=== PATIENT | male | born 1970 | race Caucasian/White ===

== ENCOUNTER → 2018-01-07 10:56 | Outpatient (CLI) | payer BC, SELFPAY ==
--- NOTE | 2018-01-07 11:00 | DI.RAD.S_ITS ---
PROCEDURE: XR LUMBAR SPINE MIN 4V INDICATIONS: low back pain with left sciatica TECHNIQUE: 5 views of the lumbar spine acquired. COMPARISON: None. FINDINGS: Bones: 5 nonrib-bearing vertebrae are present. There is S-shaped scoliosis concave to the left in the lumbar region. Disc narrowing is evident at L3-4, L4-5 and L5-S1. Slight retrolisthesis L1-2, L2-3, L3-4 and L4-5. Grade 1 anterolisthesis L5 on S1, likely bilateral L5 pars defects. Alignment appears maintained on flexion and extension views. No vertebral body compression fractures. No suspicious bony lesions. Soft tissues: Overlying bowel gas pattern is normal. Mild aortic calcifications. Flexion/extension: There is normal range of motion, with preserved normal alignment. IMPRESSION: 1. Apparent L5 spondylolyses with grade 1 spondylolisthesis L5-S1. 2. Mild retrolisthesis at all other lumbar levels, maintained throughout range of motion. 3. Degenerative disc disease L3-4, L4-5 and L5-S1. 4. Mild thoracolumbar scoliosis. Dictated by: Mario Patricio M.D. on 01/07/2018 at 11:56 Approved by: Mario Patricio M.D. on 01/07/2018 at 12:01
== END ==
PROVIDERS: Visit Provider Family Medicine
DX: M43.17 Spondylolisthesis, lumbosacral region (principal); M51.36 Other intervertebral disc degeneration, lumbar region; M51.37 Other intervertebral disc degeneration, lumbosacral region; M41.25 Other idiopathic scoliosis, thoracolumbar region
CPT/HCPCS: 72110

== ENCOUNTER → 2018-01-17 17:42 | Outpatient (CLI) | payer BC, SELFPAY ==
--- NOTE | 2018-01-17 17:48 | DI.MRI.S_ITS ---
PROCEDURE: MR LUMBAR SPINE WO CON INDICATIONS: low back pain with left sciatica TECHNIQUE: Noncontrast sagittal T1 spin echo and T2 fast echo, sagittal STIR, axial T1 and T2 fast spin echo through the lumbar spine. In cases with scoliosis, additional coronal T2 fast spin echo may be performed. COMPARISON: [facility], CR, XR LUMBAR SPINE MIN 4V, 01/07/2018, 10:43. FINDINGS: Image quality: Excellent. Alignment and Curvature: There is grade 2 anterolisthesis of L5 over S1 secondary to pars defect. Bone Marrow: Degenerative endplate signal changes at L4, L5 and S1. No acute vertebral body compression fractures. Spinal Cord: Conus medullaris terminates at the T12 level. Visualized cord demonstrates normal signal and size. Paraspinous Soft Tissues: No paravertebral masses. L1-L2: Normal appearance. L2-L3: Normal appearance. L3-L4: Moderate loss disc height and disc desiccation. There is broad posterior disc bulge and posterior disc protrusion. There is a posterior central annular tear.. Mild bilateral facet arthropathy. The central canal is mildly narrowed. Mild foraminal stenosis. L4-L5: Dthqkgij-bu-cpxmhx loss disc height and disc desiccation. There is broad posterior disc bulge and disc osteophyte complex. Mild bilateral facet arthropathy. The central canal is patent. Moderate bilateral foraminal stenosis. L5-S1: Weatnrhz-ml-dreqdy loss disc height and disc desiccation. There is broad posterior disc bulge. Mild bilateral facet arthropathy. The central canal is mildly narrowed. Severe bilateral foraminal stenosis. IMPRESSION: 1. Grade 2 anterolisthesis of L5 on S1 secondary to pars defects. 2. Multilevel degenerative disc disease and facet arthropathy as described. 2. Mild central canal stenosis at L3-L4 and L5-S1. 3. Multilevel foraminal stenoses, severe at L5-S1 bilaterally, moderate at L4-L5 bilaterally. Dictated by: Carlie Veloz M.D. on 01/18/2018 at 8:07 Transcribed by: YADI on 01/18/2018 at 8:13 Approved by: Carlie Veloz M.D. on 01/18/2018 at 9:46
== END ==
PROVIDERS: Visit Provider Family Medicine
DX: M43.17 Spondylolisthesis, lumbosacral region (principal); M51.36 Other intervertebral disc degeneration, lumbar region; M47.816 Spondylosis without myelopathy or radiculopathy, lumbar region; M48.061 Spinal stenosis, lumbar region without neurogenic claudication; M48.07 Spinal stenosis, lumbosacral region; M99.73 Connective tissue and disc stenosis of intervertebral foramina of lumbar region
CPT/HCPCS: 72148

== ENCOUNTER → 2018-03-12 08:50 | Outpatient (CLI) | payer BC, SELFPAY ==
[2018-03-12 09:54] LABS: Add Manual Diff / Slide Review NO; Basophils Percent Auto 0.7 % (0-2); Eosinophils Percent Auto 7.4 % (2-4); Hematocrit 42.5 % (41-53); Hemoglobin 14.4 g/dL (13.5-17.5); Lymphocytes Percent Auto 42.7 % (25-40); Mean Corpuscular HGB Conc 33.9 % (30-36); Mean Corpuscular Hemoglobin 29.4 PG (26-34); Mean Corpuscular Volume 86.7 fL (80-100); Monocytes Percent Auto 9.5 % (3-14); Neutrophils Absolute Auto 3700 /uL (3000-5900); Neutrophils Percent Auto 39.7 % (50-75); Platelet Count 312 X10^3/uL (150-400); Red Cell Distribution Width 13.8 % (11.6-14.8); White Blood Cell Count 9.2 X10^3/uL (4.5-11.0)
[2018-03-12 09:57] LABS: Blood Urea Nitrogen 16 mg/dL (9-20); Calcium 8.8 mg/dL (8.4-10.2); Carbon Dioxide 26 mmol/L (22-32); Chloride 103 mmol/L (98-107); Estimated Glomerular Filt Rate > 60.0 mL/min (>60); Glucose 75 mg/dL (70-100); HEMOLYSIS 28 (0-50); Potassium 3.6 mmol/L (3.4-5.1); Sodium 141 mmol/L (137-145)
== END ==
PROVIDERS: PCP Family Medicine; Visit Provider Orthopaedic Surgery Orthopaedic Surgery of the Spine
DX: M48.061 Spinal stenosis, lumbar region without neurogenic claudication (principal)
CPT/HCPCS: 36415; 80048; 85025; 93005

== ENCOUNTER 2018-03-15 06:44 | Inpatient (IN) | payer BC, SELFPAY ==
[2018-03-11 16:20] VITALS: BMI 25.7
[2018-03-15] VITALS (16 sets, daily range): BP systolic 105–152; BP diastolic 65–97; PULSE 73–98; RESP 10–18; TEMP 36.4–36.9; O2SAT 95–100; BMI 25.0
[2018-03-15] MEDS: LACTATED RINGERS 1,000 ML 42 ML IV ×2 (07:15→08:50)
[2018-03-15] MEDS: CEFAZOLIN 2 GM/100 ML FROZ.PIGGY IV ×3 (08:03→23:38)
--- NOTE | 2018-03-15 09:26 | SUR.OPER ---
Prone on spine table, head in foam head support, padded chest and pelvic supports, gel pad at knees, lower legs supported by pillows; nipples, genitalia and toes free of pressure, arms secured on foam padded arm boards at <90 degrees abduction. Tape over blanket at thigh secured to table.
--- NOTE | 2018-03-15 09:26 | SUR.OPER ---
to or from opd via gurney induction in supine position on gurney then to prone on spine table for procedure
[2018-03-15] MEDS: BUPIVACAINE 0.25% W/ EPI VIAL 50 ML INJ (09:41)
[2018-03-15] MEDS: BUPIVACAINE LIPOSOME 266 MG/20 ML VIAL INJ (09:42)
--- NOTE | 2018-03-15 10:37 | SUR.OPER ---
Prone on padded OR bed, head in foam head support, gel chest rolls, gel pad under knees, pillow under lower legs, toes free of pressure, arms secured on padded arm boards at <90 degrees abduction. Safety belt at thigh. to or from opd via gurney induced in supine position on gurney then to prone om spine table
--- NOTE | 2018-03-15 11:37 | PM.OP.1 ---
Operative Date/Time/Diagnoses Date of procedure: 03/15/18 Time of procedure: 08:38 Pre-op diagnosis: 1. L5-S1 spondylolisthesis 2. L4-5, L5-S1 spondylosis with radiculopathy 3. L4-5, L5-S1 spinal stenosis Post-op diagnosis: same Procedure & Clinicians Procedure: 1. L4-5, L5-S1 Postero-lateral and posterior interbody fusion 2. L4-5, L5-S1 interbody cage placement. 3. L4-5, L5-S1 decompressive laminectomy with bilateral facetecomies 4. L4-5, L5-S1 Posterior segmental instrumentation 5. [place] of bone marrow from iliac crest 6. Utilization of microsurgical technique and operating microscope Same procedure as scheduled: Yes Indications: Patient has been having chronic back pain and worsening lumbar radiculopathy. Patient failed multiple conservative management with worsening pain weakness and numbness in her lower extremity. Patient has been having difficulty performing activity of daily living. After discussing risks benefits of treatment options, patient elected proceed with surgery. Surgeon: Dar Mena Fisher Trammel Net: Yaima Nicolas Click Yes if Unassisted: No Anesthesia Type: General Operative Notes Closure Type: primary Specimen(s): none sent Implants & Drains: Globus Revolve screws Rise Cages Applied: catheter Estimated Blood Loss (mL): 200 Blood products transfused: none Procedure in detail: Patient was seen in the preoperative area. Risks and benefits of the surgery was discussed with the patient. Informed consent was obtained from the patient and placed in the chart. Surgical site was marked. Patient was taken to the operative room. General anesthesia was administered. Prophylactic antibiotic was given to the patient less than 30 min before the incision was made. Patient was placed into a prone position on the Phong table. Patient's back was then prepped and draped in the sterile fashion. Time-out was performed at this time. Using AP and lateral C-arm imaging the interval between L4-S1 was identified and marked on patient's back. A 2 inch incision 2 in from midline was made on the left side first. The fascia was incised in line with skin incision. Globus MARS retractors was placed inside the incision and docked onto the L4 and L5 lamina. Using microsurgical technique and operating microscope, a L4 and L5 laminectomy and L4-5 L5-S1 facetectomy was performed using a Kerrison rongeur. The disc space at L4-5, L5-S1 was identified. And a total diskectomy was performed at L4-5, L5-S1 level. The endplates were decorticated using a rasp and shaver. The total diskectomy and decortication was performed at L4-5, L5-S1 level in order to to accomplish a L4-5, L5-S1 fusion. The local bone from the laminectomy and facetectomy was saved for local bone grafting. After the total diskectomy and decortication was completed, Globus viacell bone graft material was combined with local bone that was harvested earlier. At this time, a separate skin is incision was made over the iliac crest. A Jamshidi needle was inserted into the iliac crest through a separate skin incision. 5 cc of bone marrow aspiration was obtained through the separate skin incision using a Jamshidi needle from the iliac crest. The bone marrow aspiration was combined with local bone and the via cell bone grafting material. The bone grafting material was placed into the L4-5, L5-S1 interbody space along with two cages, one expandable cage at each level. The cages were expanded to their maximum height using the torque limiting screwdriver. At this time a mirror image incision was made on the right side. The fascia was incised in line with the skin incision. Globus MARS retractor was inserted and docked onto the L4-5, L5-S1 posterolateral gutter. Using the power drill, posterior-lateral decortication was performed at L4-5, L5-S1 level until bleeding cortical bone was identified. The remaining bone grafting material was placed into the L4-5 L5-S1 posterior lateral gutter he order to accomplish posterolateral fusion at the L4-5 L5-S1 levels. Using the double C-arm technique, pedicle screws were placed into the L4, L5, S1 pedicles bilaterally. This was done by placing the Jamshidi needle into the pedicles, then placing the guidewires over the Jamshidi needle, and finally placing the cannulated screws over the guidewires bilaterally. After the pedicle screws were placed, 2 titanium rods was locked into the heads of the pedicle screws using locking caps and torque limiting screwdriver. Total 6 pedicles screws were placed. Threaded experimental mechanic electrical was used to reduce patient's spondylolisthesis. Patient's spondylolisthesis at L5-S1 was reduced to near anatomic position. All 6 pedicle screws had excellent purchase. After all the hardware was placed, and confirmed with AP and lateral C-arm imaging, the wound was then irrigated with sterile normal saline and packed with Ray-Abram gauze for 3 min to accomplish hemostasis. After the gauze was removed the deep fascia was closed with #1 Vicryl suture. The subcutaneous layer was closed with 2-0 Vicryl. The skin was closed with skin jay. Patient tolerated the procedure well. There were no complications. Complications: none Condition: stable Disposition: PACU Plan for aftercare: Admit to inpatient hospital
--- NOTE | 2018-03-15 11:42 | P.OP_ITS ---
Operative Date/Time/Diagnoses Date of procedure: 03/15/18 Time of procedure: 08:38 Pre-op diagnosis: 1. L5-S1 spondylolisthesis 2. L4-5, L5-S1 spondylosis with radiculopathy 3. L4-5, L5-S1 spinal stenosis Post-op diagnosis: same Procedure & Clinicians Procedure: 1. L4-5, L5-S1 Postero-lateral and posterior interbody fusion 2. L4-5, L5-S1 interbody cage placement. 3. L4-5, L5-S1 decompressive laminectomy with bilateral facetecomies 4. L4-5, L5-S1 Posterior segmental instrumentation 5. [place] of bone marrow from iliac crest 6. Utilization of microsurgical technique and operating microscope Same procedure as scheduled: Yes Indications: Patient has been having chronic back pain and worsening lumbar radiculopathy. Patient failed multiple conservative management with worsening pain weakness and numbness in her lower extremity. Patient has been having difficulty performing activity of daily living. After discussing risks benefits of treatment options, patient elected proceed with surgery. Surgeon: Dar Mena Plan Manager: Yaima Nicolas Click Yes if Unassisted: No Anesthesia Type: General Operative Notes Closure Type: primary Specimen(s): none sent Implants & Drains: Globus Revolve screws Rise Cages Applied: catheter Estimated Blood Loss (mL): 200 Blood products transfused: none Procedure in detail: Patient was seen in the preoperative area. Risks and benefits of the surgery was discussed with the patient. Informed consent was obtained from the patient and placed in the chart. Surgical site was marked. Patient was taken to the operative room. General anesthesia was administered. Prophylactic antibiotic was given to the patient less than 30 min before the incision was made. Patient was placed into a prone position on the Phong table. Patient's back was then prepped and draped in the sterile fashion. Time- out was performed at this time. Using AP and lateral C-arm imaging the interval between L4-S1 was identified and marked on patient's back. A 2 inch incision 2 in from midline was made on the left side first. The fascia was incised in line with skin incision. Globus MARS retractors was placed inside the incision and docked onto the L4 and L5 lamina. Using microsurgical technique and operating microscope, a L4 and L5 laminectomy and L4-5 L5-S1 facetectomy was performed using a Kerrison rongeur. The disc space at L4-5, L5-S1 was identified. And a total diskectomy was performed at L4-5, L5-S1 level. The endplates were decorticated using a rasp and shaver. The total diskectomy and decortication was performed at L4-5, L5- S1 level in order to to accomplish a L4-5, L5-S1 fusion. The local bone from the laminectomy and facetectomy was saved for local bone grafting. After the total diskectomy and decortication was completed, Globus viacell bone graft material was combined with local bone that was harvested earlier. At this time , a separate skin is incision was made over the iliac crest. A Jamshidi needle was inserted into the iliac crest through a separate skin incision. 5 cc of bone marrow aspiration was obtained through the separate skin incision using a Jamshidi needle from the iliac crest. The bone marrow aspiration was combined with local bone and the via cell bone grafting material. The bone grafting material was placed into the L4-5, L5-S1 interbody space along with two cages, one expandable cage at each level. The cages were expanded to their maximum height using the torque limiting screwdriver. At this time a mirror image incision was made on the right side. The fascia was incised in line with the skin incision. Globus MARS retractor was inserted and docked onto the L4-5, L5-S1 posterolateral gutter. Using the power drill, posterior-lateral decortication was performed at L4-5, L5-S1 level until bleeding cortical bone was identified. The remaining bone grafting material was placed into the L4-5 L5-S1 posterior lateral gutter he order to accomplish posterolateral fusion at the L4-5 L5-S1 levels. Using the double C-arm technique, pedicle screws were placed into the L4, L5, S1 pedicles bilaterally. This was done by placing the Jamshidi needle into the pedicles, then placing the guidewires over the Jamshidi needle, and finally placing the cannulated screws over the guidewires bilaterally. After the pedicle screws were placed, 2 titanium rods was locked into the heads of the pedicle screws using locking caps and torque limiting screwdriver. Total 6 pedicles screws were placed. Threaded spanish literature professor was used to reduce patient's spondylolisthesis. Patient's spondylolisthesis at L5-S1 was reduced to near anatomic position. All 6 pedicle screws had excellent purchase. After all the hardware was placed, and confirmed with AP and lateral C-arm imaging, the wound was then irrigated with sterile normal saline and packed with Ray-Abram gauze for 3 min to accomplish hemostasis. After the gauze was removed the deep fascia was closed with #1 Vicryl suture. The subcutaneous layer was closed with 2-0 Vicryl. The skin was closed with skin jay. Patient tolerated the procedure well. There were no complications. Complications: none Condition: stable Disposition: PACU Plan for aftercare: Admit to inpatient hospital
[2018-03-15] MEDS: HYDROMORPHONE 2 MG INJ 0.5 MG IV ×4 (12:12→12:35)
--- NOTE | 2018-03-15 12:16 | DI.RAD.S_ITS ---
PROCEDURE: XR LUMBAR SPINE 2-3V INDICATIONS: L4-5, L5-S1 TLIF TECHNIQUE: 2 views of the lumbar spine were acquired. COMPARISON: [facility], , XR LUMBAR SPINE MIN 4V, 01/07/2018, 10:43. FINDINGS: 2 spot fluoroscopic intraoperative images demonstrating L4-S1 posterior spinal fixation with interbody cage graft. There is expected intraoperative alignment Dictated by: Clark Mistry M.D. on 03/15/2018 at 12:26 Approved by: Clark Mistry M.D. on 03/15/2018 at 12:27
--- NOTE | 2018-03-15 12:45 | SUR.PHASEI ---
stable pacu stay, medicated with Dilaudid pain started 06/05 down to 01/03. 02 weaned off. pt's dressing remained c/d/i. siting upright.report called to [facility] and pt transported up to room 220 on room air.
[2018-03-15] MEDS: HYDROMORPHONE 0.5 MG INJ IV (13:45)
[2018-03-15] MEDS: SODIUM CHLORIDE 0.9% 1,000 ML 100 ML IV (13:45)
--- NOTE | 2018-03-15 14:59 | PC.NURSE ---
Mamadou is stable post-op lumbar TLIF. Since arrival he has been sleeping except to state pain level. VSS. Lower back drsg. clean/dry/intact. Resp. unlabored. [place] patent. Denies nausea, has taken ice chips. IV infusing L forarm.
[2018-03-15] MEDS: SENNOSIDES 8.6 MG TABLET 17.2 MG PO (21:22)
[2018-03-15] MEDS: DOCUSATE 100 MG CAPSULE PO (21:22)
[2018-03-15] MEDS: OXYCODONE IR 5 MG TABLET 10 MG PO (22:55)
[2018-03-16] MEDS: SODIUM CHLORIDE 0.9% 1,000 ML 100 ML IV (00:40)
[2018-03-16] MEDS: OXYCODONE IR 5 MG TABLET 10 MG PO ×4 (05:29→21:22)
[2018-03-16 05:32] LABS: Hematocrit 38.4 % (41-53); Hemoglobin 12.7 g/dL (13.5-17.5)
[2018-03-16 05:34] VITALS: BP 140/94; PULSE 75; RESP 16; TEMP 37.2; O2SAT 98
[2018-03-16] MEDS: SODIUM CHLORIDE 0.9% FLUSH 10 ML IV ×3 (05:54→21:23)
[2018-03-16] MEDS: DOCUSATE 100 MG CAPSULE PO ×2 (07:55→21:23)
[2018-03-16 08:00] VITALS: BP 147/81; PULSE 71; RESP 18; TEMP 36.8; O2SAT 99
--- NOTE | 2018-03-16 08:27 | P.PN_ITS ---
Subjective Date Patient Seen: 03/16/18 Time Patient Seen: 08:20 Interval history: The patient reports he is comfortable postoperative day 1 from an L4-S1 anterior and posterior fusion by Dr. Mena. He had a left footdrop preoperatively and this has not resolved. Exam Vital Signs (past 8 hours): - 03/16/18 05:34 Temperature 98.9 F Pulse Rate 75 Respiratory Rate 16 Blood Pressure 140/94 H Pulse Oximetry 98 Oxygen Delivery Method Room Air Oxygen Flow Rate 0 Narrative Exam Narrative: The patient is lying comfortably in the supine position in bed. He has intact light touch throughout both lower extremities. He has 5/5 tibialis anterior, extensor hallucis longus and gastroc soleus on the right. The left side has 5/5 gastroc soleus but 4/5 tibialis anterior and hallucis longus consistent with his prior foot drop. Objective Labs Result Diagrams: 03/16/18 05:05 Labs: Laboratory Results - last 24 hr 03/16/18 05:05 Hgb 12.7 L Hct 38.4 L Assessment & Plan Post-op Postoperative Procedures Operation Date: 03/15/18 07:45 Actual Procedures Side Surgeon p L4-5,L5-S1 TLIF w/Posterior Instru. Dar Mena MD Postoperative day: 1 Postoperative status: doing well (The patient is doing well postoperative day 1. ) Postoperative plan: routine post-op care (The patient has not seen physical therapy yet. He will have physical therapy today and likely will be discharged tomorrow. If he has very good progress today the nurses will contact me and I will discharge him later this afternoon.), ambulate and advance diet Time Spent With Patient less than 15 minutes Quality VTE Deep Vein Thrombosis/Pulmonary Embolism Present on Admission: No
--- NOTE | 2018-03-16 09:15 | PT.IIE ---
Current Diagnoses Spondylolisthesis, lumbosacral region (03/15/18) Other spondylosis with radiculopathy, lumbar region (03/15/18) Spinal stenosis, lumbar region without neurogenic claudication (03/15/18) Surgery Performed Operation Date: 03/15/18 07:45 Actual Procedures p L4-5,L5-S1 TLIF w/Posterior Instru. - Dar Mena MD Medical History (Last Updated 03/11/18 @ 16:45 by Heidi Collado RN) History of compression fracture of spine (Acute) Foraminal stenosis of lumbosacral region (Acute) Lumbago with sciatica, left side (Acute) Osteoarthritis of spine with radiculopathy, lumbar region (Acute) Sciatica (Acute) Spondylolisthesis at L5-S1 level (Acute) Physical Therapy Inpatient Evaluation/Re-Eval M1 PT/OT-IP Prior Functional Status Start: 03/16/18 10:15 Freq: NEEDED Status: Active Protocol: Document 03/16/18 10:15 [facility] (Rec: 03/16/18 10:37 [facility] [id number]) Medical Review Prior Functional Status Medical History Reviewed Yes Diet/Fluid Consistency Regular Thin Liquids Communication Independent Mobility and Gait Pt was independent with no use of devices. Activities of Daily Living and IADL's Independent. 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 Social History Household Members family Living Arrangements House Number of Floors (Floors) Two Floors Number of Stairs To Enter/Railing? Pt has a ramp to enter the house. 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 M2 PT-IP Current Condition Start: 03/16/18 12:20 Freq: NEEDED Status: Active Protocol: Document 03/16/18 09:15 AB (Rec: 03/16/18 12:31 AB [id number]) Physical Therapy Current Condition Current Condition Evaluation Date 03/16/18 Treatment Diagnosis L4-5, L5S1 TLIF with posterior instrumentation; difficulties in ambulation Onset Date 03/15/18 Precautions Lumbar Precautions Log Roll No Twisting Limit Bending Lifting Restriction of 10 lbs Gait Belt above Incisional Area Weight Bearing Status Weight Bearing Status Weight Bear as Tolerated M3 PT-IP Subjective Start: 03/16/18 12:20 Freq: NEEDED Status: Active Protocol: Document 03/16/18 09:15 AB (Rec: 03/16/18 12:31 AB [id number]) Subjective Physical Therapy Visit Type Type Initial Evaluation Visit Start Time 09:15 Visit Stop Time 09:55 Total Visit Minutes 40 Number of PIPE THREADER Visits 0 Physical Therapy Visit Comments Patient Comments pt agreeable to do therapy Therapy Pain Assessment Pain When Pain Assessed At Rest Pain Present Pain Present Pain Reported Location Back Intensity 5 Scale Used Numeric (1 - 10) Pain Management Techniques Apply Cold Timing of Activity with Medications M4 PT-IP Mobility and Gait Start: 03/16/18 12:20 Freq: NEEDED Status: Active Protocol: Document 03/16/18 09:15 AB (Rec: 03/16/18 12:31 AB [id number]) PT-Bed Mobility Assessment Rolling Level of Assist Standby Assistance Supine to Sit Supine to Sit Standby Assistance Scooting Scooting to Edge of Bed Standby Assistance PT-Transfer Assessment Sit to and From Stand Sit to and from Stand Contact Guard Assistance Equipment Transfer Assistive Device Gait Belt Front Wheeled Walker Transfers Transfer Destination Chair Transfer Technique pt ambulated to the chair using FWW Transfer Ability Level of Assist Contact Guard Assistance Comments Mobility Comments pt with increase L foot inversion with dorsiflexion during standing and ambulation Gait Assessment Gait Gait Assistance Required: Contact Guard Assist Distance (Feet) (feet) 40 Able to Maintain Weight Bearing Status Yes During Gait Assistive Devices Assistive Device Gait Belt Front Wheeled Walker Orthotic/Prosthetic Devices or Brace: No Gait Deviations General Gait Pattern Decreased Stride Length Decreased Feet Clearance Factors Limiting Gait Function Factors Limiting Gait Function Decreased Activity Tolerance Decreased Strength Limited Range of Motion Pain Poor Balance PT-Balance Assessment Sitting Balance and Reactions Static Sitting Balance Ability Good Dynamic Sitting Balance Ability Good Standing Balance and Reactions Static Standing Balance Ability Fair Dynamic Standing Balance Ability Fair Device Used FWW M5 PT-IP Objective Assessments Start: 03/16/18 12:20 Freq: NEEDED Status: Active Protocol: Document 03/16/18 09:15 AB (Rec: 03/16/18 12:31 AB [id number]) Orientation Orientation/Cognition Level of Alertness Alert Orientation Name Age Birthday Month Date Year Day of Week Place Situation Safety Awareness Understands Safety Issues Gross Range of Motion Lower Extremity ROM Assessment Bilaterally Impaired Impairments bilateral knee flexion tightness Strength Lower Extremity Strength Assessment Left Impaired Ankle 3+/5 Comments Strength Comments decrease R ankle eversion and dorsiflexion Sensation Assessment Sensation Gross Sensation Left LE Impaired Light Touch Impaired Sensation Description Numbness Comments Sensation Comments decrease sensation L medial foot/big toe area ; c/o numbness on LLE M6 PT-IP Treatment Start: 03/16/18 12:20 Freq: NEEDED Status: Active Protocol: Document 03/16/18 09:15 AB (Rec: 03/16/18 12:31 AB [id number]) Physical Therapy Treatment Education Education Provided Precautions Weight Bearing Status Post-Op Packet Safety M7 PT-IP Assessment and Plan Start: 03/16/18 12:20 Freq: NEEDED Status: Active Protocol: Document 03/16/18 09:15 AB (Rec: 03/16/18 12:31 AB [id number]) PT Summary Assessment and Plan Potential Rehabilitation Potential Good Status of Condition at Evaluation Stable Summary Impairments Pain ROM Strength Balance Coordination Sensation Bed Mobility Transfers Gait Activity Tolerance Assessment Summary pt rquiring CGA with mobility and plans to go home with spouse to assist him. pt may go home when medically stable. Goals Bed Mobility Goal Standby Assistance Transfer Goal Standby Assistance Front Wheeled Walker Gait Goal Standby Assistance Front Wheel Walker Gait Distance 150 Frequency of Treatment Frequency Of Treatment Twice a Day Treatment Plan Physical Therapy Treatment Plan Bed Mobility Training Transfer Training Gait Training Therapeutic Exercise Balance Retraining Post Op Education Discharge Planning Hot or Cold Pack Neuromuscular Re-ed Coordination Retraining Manual Therapy Recommendations To Nursing Amount of Assist Needed 1 Person Assist Discharge Recommendations PT Discharge Recommendations Home with Assistance Equipment Needed for Home Before FWW: stated that his mom can Discharge get him one
--- NOTE | 2018-03-16 09:34 | PC.NURSE ---
Addendum entered by Troy Solis R.N. 03/16/18 14:35: Pt continues resting. No void as yet post urinary catheter removal. Cath out at 10:30 -11:00. Original Note: Addendum entered by Troy Solis R.N. 03/16/18 13:41: Pt continues to progress, working with P.T. Dressing CDI. Pt now settled to bed, napping at present. Original Note: Pt alert and oriented, follows commands and asks appropriate questions.
--- NOTE | 2018-03-16 10:37 | OT.IP.EVAL ---
Current Diagnoses Spondylolisthesis, lumbosacral region (03/15/18) Other spondylosis with radiculopathy, lumbar region (03/15/18) Spinal stenosis, lumbar region without neurogenic claudication (03/15/18) Surgery Performed Operation Date: 03/15/18 07:45 Actual Procedures p L4-5,L5-S1 TLIF w/Posterior Instru. - Dar Mena MD Past Medical History (Last Updated 03/11/18 @ 16:45 by Heidi Collado RN) History of compression fracture of spine (Acute) Foraminal stenosis of lumbosacral region (Acute) Lumbago with sciatica, left side (Acute) Osteoarthritis of spine with radiculopathy, lumbar region (Acute) Sciatica (Acute) Spondylolisthesis at L5-S1 level (Acute) Occupational Therapy Inpatient Evaluation/Re-Eval M1 PT/OT-IP Prior Functional Status Start: 03/16/18 10:15 Freq: NEEDED Status: Active Protocol: Document 03/16/18 10:15 [facility] (Rec: 03/16/18 10:37 [facility] [id number]) Medical Review Prior Functional Status Medical History Reviewed Yes Diet/Fluid Consistency Regular Thin Liquids Communication Independent Mobility and Gait Pt was independent with no use of devices. Activities of Daily Living and IADL's Independent. 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 Social History Household Members family Living Arrangements House Number of Floors (Floors) Two Floors Number of Stairs To Enter/Railing? Pt has a ramp to enter the house. 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 M2 OT-IP Current Condition Start: 03/16/18 10:15 Freq: Status: Active Protocol: Document 03/16/18 10:15 [facility] (Rec: 03/16/18 10:37 [facility] [id number]) Occupational Therapy Current Condition Current Condition Evaluation Date 03/16/18 Treatment Diagnosis Lumbar stenosis Diagnosis Onset Date 03/15/18 Post Operative Precautions Lumbar Precautions Log Roll No Twisting Limit Bending Lifting Restriction of 10 lbs Gait Belt above Incisional Area Weight Bearing Status Weight Bearing Status Weight Bear as Tolerated M3 OT- IP Subjective and Pain Start: 03/16/18 10:15 Freq: Status: Active Protocol: Document 03/16/18 10:15 [facility] (Rec: 03/16/18 10:37 [facility] [id number]) OT- Subjective Occupational Therapy Visit Type Type Initial Evaluation Visit Start Time 09:17 Visit Stop Time 10:07 Total Visit Minutes 50 Occupational Therapy Visit Comments Patient Comments Pt cooperative and pleasant. OT Pain Assessment Pain When Pain Assessed At Rest Pain Present Pain Present Pain Reported Location Back Intensity 3 Scale Used Numeric (1 - 10) M4 OT- IP ADL's Start: 03/16/18 10:15 Freq: Status: Active Protocol: Document 03/16/18 10:15 [facility] (Rec: 03/16/18 10:37 [facility] [id number]) OT [id number] General Evaluation Self-Feeding Ability Independent OT ADL-Grooming General Evaluation Grooming Ability Standby Assistance Areas Needing Assistance Retrieving/Set-up of Grooming Items Comments OT Grooming Comments Pt needing to hold to FWW or counter for balance. VC to lean at waist and place one leg back or sip into cup. OT ADL-Oral Care General Eval Oral Care Ability Independent OT ADL-Dressing General Eval Lower Body Dressing Ability Maximum Assistance Areas Needing Assistance Socks Comments OT Dressing Comments Educated on use of AED for LB dressing, pt states mom has all LB AED that he can use at home. OT ADL-Toileting General Evaluation Toileting Ability Total Assistance Comments OT Toileting Comments Still has catheter. Pt requesting to have catheter out, nursing notified. OT ADL-Bathing Comments OT Bathing Comments No at this time. Pt states can get shower chair for tub/ shower and has grab bars and assist at home for showering. M6 OT- IP Functional Cognition Start: 03/16/18 10:15 Freq: Status: Active Protocol: Document 03/16/18 10:15 [facility] (Rec: 03/16/18 10:37 [facility] [id number]) Cognitive Factors Limiting Selfcare Function Cognitive Ability Level of Alertness Alert Patient Orientation Name Place Situation Attention Span Ability Capable of Focused Attention Capable of Sustained Attention Ability to Follow Commands Able to Follow Multi-Step Commands Memory Description No Deficits Noted Safety Awareness No Deficits Noted Problem Solving Ability No deficits Noted Cognitive Comments Cognitive Assessment Comments Pt doing well so far to incorportate back precations for ADL needs after initial education. OT- Vision and Hearing OT- Hearing Assessment OT- Hearing Assessment WFL OT- Vision Assessment Visual Acuity WFL Visual Attentiveness WFL M7 OT- IP Mobility and Balance Start: 03/16/18 10:15 Freq: Status: Active Protocol: Document 03/16/18 10:15 [facility] (Rec: 03/16/18 10:37 [facility] [id number]) OT- Bed Mobility Assessment Rolling Type of Rolling Roll to Right Level of Assistance Contact Guard Assistance OT-Transfer Assessment Sit to and From Stand Sit to and from Stand Contact Guard Assistance Transfers Transfer Ability Contact Guard Assistance Technique Transfer Destination Chair Transfer Technique Stand Step Pivot Devices Transfer Assistive Devices Gait Belt Standard Walker Comments Mobility Comments Pt left foot drop, ankle rolls , and needing heavy use of BUE on FWW . OT- Balance Assessment Sitting Balance and Reactions Static Sitting Balance Ability Normal Dynamic Sitting Balance Ability Normal Standing Balance and Reactions Static Standing Balance Ability Fair M8 OT- IP Objective Assessments Start: 03/16/18 10:15 Freq: Status: Active Protocol: Document 03/16/18 10:15 [facility] (Rec: 03/16/18 10:37 [facility] [id number]) OT Gross Range of Motion Upper Extremity Range of Motion Assessment Within Functional Limits OT Strength Upper Extremity Strength Assessment Within Functional Limits OT-Muscle Tone Assessment Muscle Tone WNL Yes OT Sensation Assessment Comments Summary Comments WFL for light touch BUE, impaired for LLE mainly for left great toe and left side of his foot. M9 OT- IP Assessment and Plan Start: 03/16/18 10:15 Freq: Status: Active Protocol: Document 03/16/18 10:15 [facility] (Rec: 03/16/18 10:37 [facility] [id number]) OT Summary Assessment and Plan Potential Rehabilitation Potential Excellent Analytic Complexity at Evaluation Low Summary OT Impairments Pain Strength Balance Functional Mobility Dressing Toileting Bathing Toilet Transfers Shower Transfers Progress Towards Goals Progressing Toward Goals Assessment Summary Pt doing well main barrier left foot drop which causes decreases his balance and relying heavily on FWW. Pt will have assist at home for needs. Goals Dressing Goal Independent Toileting Goal Independent Bathing Goal Standby Assistance Toilet Transfer Goal Independent Shower Transfer Goal Standby Assistance Patient/Caregiver Education Goal Demonstrate Post-Op Precautions Caregiver Independent Assisting Patient Days to Meet Goals 2 Frequency of Treatment Frequency Of Treatment Once a Day Treatment Plan OT Treatment Plan ADL Training Functional Mobility Patient/Family Education Discharge Planning Other Treatment Recommendations and Next Shower Treatment Focus Discharge Recommendations OT Discharge Recommendations Home with Assistance Home Equipment Needs LB dressing AED, shower chair, FWW
[2018-03-16 12:00] VITALS: BP 136/74; PULSE 84; RESP 16; TEMP 37.1; O2SAT 99
--- NOTE | 2018-03-16 12:43 | PT.IPTN ---
Current Diagnoses Spondylolisthesis, lumbosacral region (03/15/18) Other spondylosis with radiculopathy, lumbar region (03/15/18) Spinal stenosis, lumbar region without neurogenic claudication (03/15/18) Surgery Performed Operation Date: 03/15/18 07:45 Actual Procedures p L4-5,L5-S1 TLIF w/Posterior Instru. - Dar Mena MD Physical Therapy Treatment Note M2 PT-IP Current Condition Start: 03/16/18 12:20 Freq: NEEDED Status: Active Protocol: Document 03/16/18 09:15 [facility] (Rec: 03/16/18 12:31 AB [id number]) Physical Therapy Current Condition Current Condition Evaluation Date 03/16/18 Treatment Diagnosis L4-5, L5S1 TLIF with posterior instrumentation; difficulties in ambulation Onset Date 03/15/18 Precautions Lumbar Precautions Log Roll No Twisting Limit Bending Lifting Restriction of 10 lbs Gait Belt above Incisional Area Weight Bearing Status Weight Bearing Status Weight Bear as Tolerated M3 PT-IP Subjective Start: 03/16/18 12:20 Freq: NEEDED Status: Active Protocol: Document 03/16/18 12:43 [facility] (Rec: 03/16/18 13:07 AB [id number]) Subjective Physical Therapy Visit Type Type Treatment Note Visit Start Time 12:43 Visit Stop Time 12:53 Total Visit Minutes 10 Number of DIGITAL ASSET COORDINATOR Visits 0 Physical Therapy Visit Comments Patient Comments pt requesting to go back to bed but agreed to do ambulation first Therapy Pain Assessment Pain When Pain Assessed At Rest Pain Present Pain Present Pain Reported Location Back Scale Used pain scale not stated M4 PT-IP Mobility and Gait Start: 03/16/18 12:20 Freq: NEEDED Status: Active Protocol: Document 03/16/18 12:43 [facility] (Rec: 03/16/18 13:07 AB [id number]) PT-Bed Mobility Assessment Sit to Supine Sit to Supine Standby Assistance PT-Transfer Assessment Sit to and From Stand Sit to and from Stand Standby Assistance Contact Guard Assistance Gait Assessment Gait Gait Assistance Required: Standby Assistance Contact Guard Assist Distance (Feet) (feet) 75 Able to Maintain Weight Bearing Status Yes During Gait Assistive Devices Assistive Device Gait Belt Front Wheeled Walker Orthotic/Prosthetic Devices or Brace: No Gait Deviations General Gait Pattern Decreased Stride Length Decreased Feet Clearance Factors Limiting Gait Function Factors Limiting Gait Function Decreased Activity Tolerance Decreased Sensation Decreased Strength Pain Poor Balance Comments Gait Comments pt continues to have L foot inversion but improved compared to this morning M5 PT-IP Objective Assessments Start: 03/16/18 12:20 Freq: NEEDED Status: Active Protocol: Document 03/16/18 09:15 [facility] (Rec: 03/16/18 12:31 AB [id number]) Orientation Orientation/Cognition Level of Alertness Alert Orientation Name Age Birthday Month Date Year Day of Week Place Situation Safety Awareness Understands Safety Issues Gross Range of Motion Lower Extremity ROM Assessment Bilaterally Impaired Impairments bilateral knee flexion tightness Strength Lower Extremity Strength Assessment Left Impaired Ankle 3+/5 Comments Strength Comments decrease R ankle eversion and dorsiflexion Sensation Assessment Sensation Gross Sensation Left LE Impaired Light Touch Impaired Sensation Description Numbness Comments Sensation Comments decrease sensation L medial foot/big toe area ; c/o numbness on LLE M6 PT-IP Treatment Start: 03/16/18 12:20 Freq: NEEDED Status: Active Protocol: Document 03/16/18 12:43 [facility] (Rec: 03/16/18 13:07 AB [id number]) Physical Therapy Treatment Education Education Provided Precautions Safety M7 PT-IP Assessment and Plan Start: 03/16/18 12:20 Freq: NEEDED Status: Active Protocol: Document 03/16/18 12:43 [facility] (Rec: 03/16/18 13:07 AB [id number]) PT Summary Assessment and Plan Potential Rehabilitation Potential Good Summary Impairments Pain ROM Strength Balance Sensation Bed Mobility Transfers Gait Activity Tolerance Progress Towards Goals Progressing Toward Goals Assessment Summary pt progressing well with mobility and requires SBA to CGA for safety. pt may go home when medically stable. Goals Bed Mobility Goal Independent Transfer Goal Independent Front Wheeled Walker Gait Goal Independent Front Wheel Walker Gait Distance 150 Days to Meet Goals 3 Frequency of Treatment Frequency Of Treatment Twice a Day Treatment Plan Physical Therapy Treatment Plan Bed Mobility Training Transfer Training Gait Training Therapeutic Exercise Balance Retraining Post Op Education Discharge Planning Hot or Cold Pack Neuromuscular Re-ed Coordination Retraining Manual Therapy Recommendations To Nursing Amount of Assist Needed 1 Person Assist Discharge Recommendations PT Discharge Recommendations Home with Assistance Equipment Needed for Home Before FWW: stated that his mom can Discharge get him one
--- NOTE | 2018-03-16 13:14 | CM.DANOTE ---
Discharge Planning/Care Management DCP: assessment: Case received, EMR reviewed and met with pt. Introduced self and role. Pt is a 47 year old male who admitted yesterday for a planned spinal surgery. Payer: [employer]. Surgeon: Dr. Mena. Pt confirms that he plans to recover at the family home in [place], [place]. His mother and girlfriend will assist him. His mother is getting the recommended FWW from a friend. She and AMARJIT Dyson have been working with the therapy team on caregiver training. OT and PT both support pt plan for home with prn help at this time, post op day one. P: home to [place] as above ([facility] is alerted to address update) CM Discharge Assessment Start: 03/16/18 13:11 Freq: Status: Active Protocol: Document 03/16/18 13:11 ITV (Rec: 03/16/18 13:14 ITV [id number]) Discharge Planning Assessment History Provided By Patient Medical Record Has Patient been admitted in last 30 No days? Is this patient on Medicare? No Prior Living Arrangements House Household Members family Independent with ADL's Yes Is patient alert and oriented? 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 His mother and girlfriend Karis Milligan will be assisting him Review Status In Process Next Review Type Continued Stay Review
[2018-03-16 15:35] VITALS: BP 157/92; PULSE 87; RESP 20; TEMP 36.8; O2SAT 100
[2018-03-16 19:09] VITALS: BP 149/86; PULSE 85; RESP 18; TEMP 36.4; O2SAT 100
[2018-03-16] MEDS: ACETAMINOPHEN 325 MG TABLET 650 MG PO (21:23)
[2018-03-16] MEDS: SENNOSIDES 8.6 MG TABLET 17.2 MG PO (21:23)
[2018-03-16 23:36] VITALS: BP 129/71; PULSE 87; RESP 16; TEMP 36.7; O2SAT 95
[2018-03-17] MEDS: OXYCODONE IR 5 MG TABLET 10 MG PO ×3 (01:22→13:46)
[2018-03-17 06:07] VITALS: BP 99/54; PULSE 86; RESP 16; TEMP 37; O2SAT 98
[2018-03-17] MEDS: SODIUM CHLORIDE 0.9% FLUSH 10 ML IV (07:59)
[2018-03-17] MEDS: DOCUSATE 100 MG CAPSULE PO (07:59)
[2018-03-17 08:10] VITALS: BP 151/76; PULSE 83; RESP 16; TEMP 37.2; O2SAT 96
--- NOTE | 2018-03-17 09:21 | PM.DS.1 ---
History of Present Illness Date Patient Seen: 03/17/18 Time Patient Seen: 09:00 Chief complaint: L4-5 L5-S1 tlif w/posterior instr [id number]/note Narrative: History of present illness and physical examination is contained in the chart and a previously completed note. Please refer to that note for this information. Discharge Providers Date of admission: 03/15/18 06:44 Primary care physician: Aniceto Sanchez MD Consults: 03/15/18 13:20 Consult to Occupational Therapy Evaluate & Treat Comment: Physician Instructions: Evaluate and treat Consult to Physical Therapy Evaluate & Treat Comment: Physician Instructions: Evaluate and Treat Discharge provider: Karlo Trivedi MD Summary Discharge Diagnosis: Lumbar spinal stenosis Hospital Course: The patient was admitted the hospital and taken directly to the operating room on March 15, 2018 where he underwent an anterior and posterior fusion from L4 through S1. He was stable postoperatively throughout his hospital course. By the afternoon of the 1st postoperative day he had walked down the hallway and to and from the bathroom. On the morning of postoperative day 2 he was felt to be ready for discharge. The patient did have a left footdrop which was present prior to surgery and continued throughout his hospital course. Status at Discharge Functional status at discharge: independent ambulation Overall status at discharge: patient is progressing back to baseline Time Spent with Patient Less than 30 minutes Exam Vital Signs (past 8 hours): - 03/17/18 06:07 03/17/18 08:10 Temperature 98.6 F 98.9 F Pulse Rate 86 83 Respiratory Rate 16 16 Blood Pressure 99/54 L 151/76 H Pulse Oximetry 98 96 Oxygen Delivery Method Room Air Oxygen Flow Rate 0 Objective Labs Result Diagrams: 03/16/18 05:05 Discharge Plan Discharge Plan Patient Disposition: Home, Self-Care Discharge Med Rec/Prescriptions Prescriptions: New oxycodone 5 mg Tablet 10 mg PO Q3HR PRN (Reason: Pain, Severe (7-10)) Qty: 40 RF: 0 hydroxyzine pamoate 25 mg Capsule 25 mg PO Q4HR PRN (Reason: Nausea And Vomiting) Qty: 40 RF: 0 Follow up/Referrals: Dar Mena MD [Physician] - 2 Weeks Provider Discharge Instructions Diet: Diet as Tolerated Activity: Lift no more than 10 pounds. Wound Care Report to your healthcare provider any signs of infection, such as:: chills, fever, night sweats, increased pain and unusual drainage Dressing: Leave dressing intact. Discharge Data Primary Care Provider: Aniceto Sanchez Attending Provider: Dar Mena Admit Date/Time: 03/15/18 06:44 Quality VTE Deep Vein Thrombosis/Pulmonary Embolism Present on Admission: No
--- NOTE | 2018-03-17 10:53 | PT.IPTN ---
Current Diagnoses Spondylolisthesis, lumbosacral region (03/15/18) Other spondylosis with radiculopathy, lumbar region (03/15/18) Spinal stenosis, lumbar region without neurogenic claudication (03/15/18) Surgery Performed Operation Date: 03/15/18 07:45 Actual Procedures p L4-5,L5-S1 TLIF w/Posterior Instru. - Dar Mena MD Physical Therapy Treatment Note M2 PT-IP Current Condition Start: 03/16/18 12:20 Freq: NEEDED Status: Active Protocol: Document 03/16/18 09:15 AB (Rec: 03/16/18 12:31 AB [id number]) Physical Therapy Current Condition Current Condition Evaluation Date 03/16/18 Treatment Diagnosis L4-5, L5S1 TLIF with posterior instrumentation; difficulties in ambulation Onset Date 03/15/18 Precautions Lumbar Precautions Log Roll No Twisting Limit Bending Lifting Restriction of 10 lbs Gait Belt above Incisional Area Weight Bearing Status Weight Bearing Status Weight Bear as Tolerated M3 PT-IP Subjective Start: 03/16/18 12:20 Freq: NEEDED Status: Active Protocol: Document 03/17/18 09:45 [facility] (Rec: 03/17/18 10:53 [facility] [id number]) Subjective Physical Therapy Visit Type Type Treatment Note Visit Start Time 09:45 Visit Stop Time 10:00 Total Visit Minutes 15 Number of FIBERGLASS BOAT PARTS FINISHER Visits 1 Physical Therapy Visit Comments Patient Comments Pt agreeable to do therapy Therapy Pain Assessment Pain When Pain Assessed During Mobility Pain Present Pain Present Pain Reported Location Back Scale Used pain scale not stated M4 PT-IP Mobility and Gait Start: 03/16/18 12:20 Freq: NEEDED Status: Active Protocol: Document 03/17/18 09:45 [facility] (Rec: 03/17/18 10:53 [facility] [id number]) PT-Bed Mobility Assessment Rolling Type of Rolling Log Rolling Level of Assist Standby Assistance Sit to Supine Sit to Supine Standby Assistance Scooting Scooting to Edge of Bed Standby Assistance PT-Transfer Assessment Sit to and From Stand Sit to and from Stand Standby Assistance Contact Guard Assistance Equipment Transfer Assistive Device Gait Belt Front Wheeled Walker Transfers Transfer Destination Bed Transfer Ability Level of Assist Standby Assistance Gait Assessment Gait Gait Assistance Required: Standby Assistance Contact Guard Assist Distance (Feet) (feet) 100 Able to Maintain Weight Bearing Status Yes During Gait Assistive Devices Assistive Device Gait Belt Front Wheeled Walker Orthotic/Prosthetic Devices or Brace: No Gait Deviations General Gait Pattern Decreased Stride Length Decreased Feet Clearance Factors Limiting Gait Function Factors Limiting Gait Function Decreased Activity Tolerance Decreased Sensation Decreased Strength Pain Poor Balance Comments Gait Comments pt continues to have L foot inversion M5 PT-IP Objective Assessments Start: 03/16/18 12:20 Freq: NEEDED Status: Active Protocol: Document 03/16/18 09:15 AB (Rec: 03/16/18 12:31 AB [id number]) Orientation Orientation/Cognition Level of Alertness Alert Orientation Name Age Birthday Month Date Year Day of Week Place Situation Safety Awareness Understands Safety Issues Gross Range of Motion Lower Extremity ROM Assessment Bilaterally Impaired Impairments bilateral knee flexion tightness Strength Lower Extremity Strength Assessment Left Impaired Ankle 3+/5 Comments Strength Comments decrease R ankle eversion and dorsiflexion Sensation Assessment Sensation Gross Sensation Left LE Impaired Light Touch Impaired Sensation Description Numbness Comments Sensation Comments decrease sensation L medial foot/big toe area ; c/o numbness on LLE M6 PT-IP Treatment Start: 03/16/18 12:20 Freq: NEEDED Status: Active Protocol: Document 03/16/18 12:43 AB (Rec: 03/16/18 13:07 AB [id number]) Physical Therapy Treatment Education Education Provided Precautions Safety M7 PT-IP Assessment and Plan Start: 03/16/18 12:20 Freq: NEEDED Status: Active Protocol: Document 03/17/18 09:45 [facility] (Rec: 03/17/18 10:53 CLB [id number]) PT Summary Assessment and Plan Potential Rehabilitation Potential Good Summary Impairments Pain ROM Strength Balance Sensation Bed Mobility Transfers Gait Activity Tolerance Progress Towards Goals Progressing Toward Goals Assessment Summary Pt continues to progress. Pt is SBA for mobility and SBA- CGA with min cues for gait. Pt recalls 3/3 precautions. Pt may go home when medically stable. Goals Bed Mobility Goal Independent Transfer Goal Independent Front Wheeled Walker Gait Goal Independent Front Wheel Walker Gait Distance 150 Days to Meet Goals 3 Frequency of Treatment Frequency Of Treatment Twice a Day Treatment Plan Physical Therapy Treatment Plan Bed Mobility Training Transfer Training Gait Training Therapeutic Exercise Balance Retraining Post Op Education Discharge Planning Hot or Cold Pack Neuromuscular Re-ed Coordination Retraining Manual Therapy Recommendations To Nursing Amount of Assist Needed 1 Person Assist Discharge Recommendations PT Discharge Recommendations Home with Assistance Equipment Needed for Home Before FWW: stated that his mom can Discharge get him one
--- NOTE | 2018-03-17 13:57 | PC.NURSE ---
Discharge instructions reviewed with patient and his mom. Prescriptions given. Patient states understanding and has no further questions or concern. Coversite dressing to back remains CDI. Patient escorted out via wheelchair by ENVIRONMENTAL ADVISER with all belongings. Patient states he has follow up scheduled.
== END 2018-03-17 13:58 | disposition home or self-care (01) | DRG 455 ==
PROVIDERS: Admitting Provider Orthopaedic Surgery Orthopaedic Surgery of the Spine; PCP Family Medicine; Visit Provider Orthopaedic Surgery Orthopaedic Surgery of the Spine
PROC: 0SG00AJ Fusion of Lumbar Vertebral Joint with Interbody Fusion Device, Posterior Approach, Anterior Column, Open Approach (ICD-10-PCS; principal; 2018-03-15 07:45)
DX: M43.17 Spondylolisthesis, lumbosacral region (principal); M48.061 Spinal stenosis, lumbar region without neurogenic claudication; M47.27 Other spondylosis with radiculopathy, lumbosacral region; Z87.891 Personal history of nicotine dependence; M21.372 Foot drop, left foot
CPT/HCPCS: 36415; 36592; 72100; 76001; 85014; 85018; 97116; 97161; 97165; 97530; 97535; 99406; C1776; C9290; J0330; J0690; J1100; J1170; J2405; J2704; J3010